=== PATIENT | male | born 1955 | race Caucasian/White ===

== ENCOUNTER 2022-09-30 06:13 | Day surgery (SDC) | payer OTHER, BC ==
[2022-09-23 11:40] VITALS: BMI 26.6
[~2022-09-30 06:13] MED LIST: LACTATED RINGERS SOLUTION 1,000 ML IV SCH; oxyCODONE HCL 5 MG TABLET PO PRN
[2022-09-30] MEDS ORDERED: PROPOFOL 40 ML ONE (07:08)
[2022-09-30] MEDS ORDERED: LIDOCAINE HCL/PF 2% SDV 5ML VIAL ONE (07:08)
[2022-09-30] MEDS ORDERED: ROCURONIUM BROMIDE 50 MG/5 ML SYRINGE ONE (07:09)
[2022-09-30] MEDS ORDERED: SUCCINYLCHOLINE CHLORIDE 200 MG/10 ML SYRINGE ONE (07:09)
[2022-09-30] MEDS ORDERED: MIDAZOLAM HCL 2 MG/2 ML SINGLE DOSE VIAL ONE (07:11)
[2022-09-30] MEDS ORDERED: DEXAMETHASONE SOD PHOSPHATE 4 MG/1 ML VIAL ONE (07:12)
[2022-09-30] MEDS ORDERED: ONDANSETRON 4 MG/2 ML VIAL ONE (07:12)
[2022-09-30] MEDS ORDERED: LIDOCAINE 1%-EPI 1:100,000 30 ML MDV IJ ONE ×2 (07:13→08:47)
[2022-09-30] MEDS ORDERED: NITROGLYCERIN 2% OINTMENT - 1GM PACKET TD ONE (07:13)
[2022-09-30] MEDS ORDERED: ceFAZolin SODIUM 1 GM VIAL ONE (07:14)
[2022-09-30] MEDS ORDERED: oxyCODONE HCL 5 MG TABLET PO PRN ×3 (07:22→08:32)
[2022-09-30] MEDS ORDERED: ACETAMINOPHEN INJECTION 100 ML IVPB ONE (07:26)
[2022-09-30] MEDS ORDERED: SEVOFLURANE 250 ML BTL ONE (07:30)
[2022-09-30] MEDS ORDERED: LACTATED RINGERS SOLUTION 1,000 ML IV SCH ×2 (07:30→08:45)
[2022-09-30] MEDS ORDERED: ONDANSETRON 4 MG/2 ML VIAL IVPB PRN (08:32)
[2022-09-30] MEDS ORDERED: BSS (NA/CA/MG/K) BALANCED SALT SOLUTION OPHTH SOLN 15 ML BOTTLE ONE (08:39)
[2022-09-30] MEDS ORDERED: KETOROLAC TROMETHAMINE 30 MG/1 ML VIAL ONE (08:41)
[2022-09-30] MEDS ORDERED: BACITRACIN ZINC 15 GM TUBE TOPICAL OINTMENT ONE (09:58)
[2022-09-30] MEDS ORDERED: FENTANYL CITRATE/PF 50 MCG/ML VIAL ONE (11:01)
[2022-09-30] MEDS ORDERED: oxyCODONE HCL 5 MG TABLET ONE (11:37)
[2022-09-30 11:53] VITALS: RESP 18; TEMP 98
[2022-09-30 12:43] VITALS: BP 132/70; PULSE 68
== END 2022-09-30 12:45 | disposition home or self-care (01) ==
LOC: FASU 06:13
PROVIDERS: ATTEND Plastic Surgery
PROC: 0HX1XZZ Transfer Face Skin, External Approach (ICD-10-PCS; principal; 2022-09-30 09:01)
DX: D03 Melanoma in situ (principal)
CPT/HCPCS: 94760

== ENCOUNTER 2024-06-21 04:29 | Day surgery (SDC) | payer OTHER, BC ==
[2024-06-17 14:27] VITALS: BMI 25.0
[2024-06-21 11:51] VITALS: RESP 20
[2024-06-21] MEDS ORDERED: BUPIVACAINE HCL/PF 0.5% (5MG/ML) 10 ML VIAL ONE (12:38)
[2024-06-21] MEDS ORDERED: PROPOFOL 40 ML ONE (13:02)
[2024-06-21] MEDS ORDERED: MIDAZOLAM HCL 2 MG/2 ML SINGLE DOSE VIAL ONE (13:02)
[2024-06-21] MEDS ORDERED: SUCCINYLCHOLINE CHLORIDE 200 MG/10 ML SYRINGE ONE (13:03)
[2024-06-21] MEDS ORDERED: ONDANSETRON 4 MG/2 ML VIAL ONE (13:16)
[2024-06-21] MEDS ORDERED: DEXAMETHASONE SOD PHOSPHATE 4 MG/1 ML VIAL ONE (13:16)
[2024-06-21] MEDS ORDERED: ceFAZolin SODIUM 1 GM VIAL ONE (13:16)
[2024-06-21] MEDS: ceFAZolin 2 GRAM PREMIX BAG IVPB ONE (13:18)
[2024-06-21] MEDS: BUPIVACAINE HCL/PF 0.5% (5MG/ML) 10 ML VIAL IJ ONE ×3 (13:28)
[2024-06-21] MEDS: LIDOCAINE HCL 1%, 10 MG/ML (20ML VIAL) INF ONE ×3 (13:28)
[2024-06-21] MEDS ORDERED: oxyCODONE HCL 5 MG TABLET PO PRN (14:05)
[2024-06-21] MEDS ORDERED: ONDANSETRON 4 MG/2 ML VIAL IVPUSH PRN (14:05)
[2024-06-21] MEDS ORDERED: LACTATED RINGERS SOLUTION 1,000 ML IV SCH (14:15)
[2024-06-21] MEDS: ACETAMINOPHEN 1000 MG/100 ML BAG IVPB ONE (14:30)
[2024-06-21] MEDS: ACETAMINOPHEN INJECTION 100 ML ONE (14:30)
[2024-06-21 16:11] VITALS: BP 148/78; PULSE 68; TEMP 97.5
== END 2024-06-21 16:00 | disposition home or self-care (01) ==
LOC: JASU-SURG 04:29
PROVIDERS: ATTEND Surgery
PROC: 0JBM0ZZ Excision of Left Upper Leg Subcutaneous Tissue and Fascia, Open Approach (ICD-10-PCS; principal; 2024-06-21 15:00)
DX: D17.24 Benign lipomatous neoplasm of skin and subcutaneous tissue of left leg (principal)
CPT/HCPCS: 88304-TC; 94760; J0131